=== PATIENT | female | born 1985 | race Caucasian/White ===

== ENCOUNTER 2017-05-14 08:06 | Emergency (ER) | payer OTHER ==
--- NOTE | ~2017-05-14 | ER ---
PATIENT'S NAME: ALEX LYNN [facility] AGE: 31 Y [address] ROOM: [place] [address] LOCATION: [facility] ADMIT DATE: 05/14/2017 ER/Outpatient Report DISCHARGE DATE: 05/14/2017 FAMILY PHYSICIAN: Butch Sanchez MD ATTENDING PHYSICIAN: Everardo Carlos Time of Arrival: 0806 hours. Time of Evaluation: 0822 hours. CHIEF COMPLAINT: Migraine. HISTORY OF PRESENT ILLNESS: The patient is a 31-year-old female who presents to the emergency department today with chief complaint of migraine. She reports this started 1 day prior to arrival. It has progressively worsened. It is not sudden onset. She reports she has a history of similar episode a few months ago. She reports this is just like her previous migraines. It is on the right side around her eye, then moves backwards. This is similar to previous headache. Denies any fevers. Does report chills. Does report nausea and vomiting x2. No diarrhea or constipation. No nasal congestion or nasal drainage. This is not the worst headache of her life. PAST MEDICAL HISTORY: 1. Migraines. 2. Depression and anxiety. PAST SURGICAL HISTORY: 1. Tonsillectomy. 2. Tubal ligation. 3. Myringotomy. SOCIAL HISTORY: The patient denies any tobacco, alcohol, or illicit drug use. ALLERGIES: NO KNOWN DRUG ALLERGIES. MEDICATIONS: Please see list. PRIMARY CARE DOCTOR: Butch Sanchez MD REVIEW OF SYSTEMS: PATIENT'S NAME: ALEX LYNN [facility] AGE: 31 Y [address] ROOM: [place] [address] LOCATION: [facility] ADMIT DATE: 05/14/2017 ER/Outpatient Report DISCHARGE DATE: 05/14/2017 FAMILY PHYSICIAN: Butch Sanchez MD ATTENDING PHYSICIAN: Everardo Carlos All systems are reviewed by myself are negative with the exception of those discussed in the HPI and past medical history. PHYSICAL EXAMINATION: VITAL SIGNS: Weight 70.9 kg. Blood pressure 123/78, pulse 65, respiratory rate 16, temperature 98.4, and oxygen saturation 99% on room air. GENERAL: The patient is a 31-year-old female, who appears stated age, in mild acute distress. HEENT: Head; normocephalic and atraumatic. Pupils are equal, round, and reactive to light. Extraocular motions are intact. Nares are patent bilaterally. TMs are clear. Oropharynx is clear. NECK: Supple. There is no nuchal rigidity. CARDIOVASCULAR: Regular rate and rhythm. No murmurs, rubs, or gallops. LUNGS: Clear to auscultation bilaterally. No wheezes, rales, or rhonchi. ABDOMEN: Soft, nontender, and nondistended. No rebound, rigidity, or guarding. MUSCULOSKELETAL: The patient moves all 4 extremities. 5/5 muscle strength. NEUROLOGICAL: GCS 15. Alert and oriented x4. Cranial nerves 2 through 12 are intact. Normal [id number]. Normal rapid hand movement. 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 Downward going toes. No clonus. 2/4 reflexes. SKIN: Warm and dry. There are no rashes or lesions noted. LABORATORY DATA AND X-RAYS: None. IMPRESSION: 1. Cephalgia, migraine type. 2. Initial visit. EMERGENCY DEPARTMENT COURSE: The patient was brought back to the examination room. Seen and evaluated by myself. The patient was given 10 mg of Compazine IM as well as 50 mg of Benadryl IM, and 60 mg of Toradol IM. Sedation warning was given to the patient. She does report that she will take a cab home. I have discussed following up with primary care doctor in 2 to 3 days for re-evaluation. I have discussed return to care instructions including worsening symptoms or any other concerns to return to the emergency department as soon as possible. The patient is agreeable without further questions at this time. DISPOSITION: The patient was discharged to home in good condition. PATIENT'S NAME: ALEX LYNN [facility] AGE: 31 Y [address] ROOM: [place], [place] [address] LOCATION: [facility] ADMIT DATE: 05/14/2017 ER/Outpatient Report DISCHARGE DATE: 05/14/2017 FAMILY PHYSICIAN: Butch Sanchez MD ATTENDING PHYSICIAN: Everardo Carlos DO KJR/kamini /[id number] d: 05/14/17 1335 t: 05/24/17 0650, OUTPATIENT REPORT
== END 2017-05-14 08:44 | disposition disaster alternative care site (69) ==
LOC: GMED 08:06
DX: G43.909 Migraine, unspecified, not intractable, without status migrainosus (principal); F32.9 Major depressive disorder, single episode, unspecified; F41.9 Anxiety disorder, unspecified; Z90.89 Acquired absence of other organs; Z98.51 Tubal ligation status; Z79.899 Other long term (current) drug therapy
CPT/HCPCS: J0780; J1200; J1885